=== PATIENT | female | born 1965 | race Caucasian/White ===

== ENCOUNTER 2017-02-23 17:13 | Emergency (ER) | payer OTHER ==
[~2017-02-23] VITALS: Ht 152.4 cm; Wt 93.0 kg
[~2017-02-23 17:13] MED LIST: COL250 PO; METFORMIN HCL500 MG PO; NAPROSYN375 MG PO; OMEPRAZOLE MAGN20 M1 PO; RANITIDINE HCL150 M1 PO
[2017-02-23 19:08] LABS: CALCIUM 8.8 mg/dL (8.5-10.1); CARBON DIOXIDE 29.5 mmol/L (21-32); CHLORIDE SERUM 103 mmol/L (98-107); CREATININE SERUM 0.9 mg/dL (0.6-1.0); GFR1 > 60 mL/min; GLUCOSE SERUM 301 mg/dL (74-106); POTASSIUM SERUM 3.8 mmol/L (3.5-5.1); SODIUM SERUM 140 mmol/L (136-145)
[2017-02-23 19:13] LABS: ALBUMIN 3.8 g/dL (3.4-5.0); ALKALINE PHOSPHATASE 93 U/L (46-116); ALT/SGPT 90 U/L (14-59); AST/SGOT 58 U/L (15-37); BILIRUBIN TOTAL 0.23 mg/dL (0.20-1.00)
[2017-02-23 19:20] LABS: PLATELET COUNT 248 x10^3mcL (130-400); RED CELL DISTRIBUTION WIDTH 12.6 % (11.5-14.5)
[2017-02-23 21:05] VITALS: BP 112/78
== END 2017-02-23 21:05 | disposition home or self-care (01) ==
LOC: ED 17:13
PROVIDERS: Emergency Medicine
DX: R07.89 Other chest pain (principal); E11.9 Type 2 diabetes mellitus without complications; R00.2 Palpitations
CPT/HCPCS: 83880; 85378; J1885

== ENCOUNTER 2017-09-07 08:35 | Inpatient (IN) | payer OTHER ==
[~2017-09-07] VITALS: Ht 162.6 cm; Wt 91.0 kg
[2017-09-07 10:19] LABS: BASOPHIL % 0.6 % (0-2); PLATELET COUNT 239 x10^3mcL (130-400); RED CELL DISTRIBUTION WIDTH 12.2 % (11.5-14.5)
[2017-09-07 10:22] LABS: CALCIUM 8.8 mg/dL (8.5-10.1); CARBON DIOXIDE 33.2 mmol/L (21-32); CHLORIDE SERUM 102 mmol/L (98-107); CREATININE SERUM 0.7 mg/dL (0.6-1.0); GFR1 > 60 mL/min; GLUCOSE SERUM 303 mg/dL (74-106); POTASSIUM SERUM 3.9 mmol/L (3.5-5.1); SODIUM SERUM 138 mmol/L (136-145)
[2017-09-07 10:26] LABS: ALBUMIN 3.7 g/dL (3.4-5.0); ALKALINE PHOSPHATASE 87 U/L (46-116); ALT/SGPT 65 U/L (14-59); AST/SGOT 29 U/L (15-37); BILIRUBIN TOTAL 0.3 mg/dL (0.20-1.00); LIPASE 188 IU/L (73-393); TOTAL PROTEIN, SERUM 7.9 g/dL (6.4-8.2)
[2017-09-07 11:34] LABS: AMPHETAMINE QUAL UR NONE DETECTED (NEG <=1000)
[2017-09-07 13:51] LABS: microscopic required? NO
[2017-09-07 13:53] VITALS: BP 137/81
[2017-09-07 13:54] LABS: UA SPECIFIC GRAVITY <=1.005 (1.005-1.035)
[2017-09-07 13:55] LABS: urine erythrocyte NEGATIVE (NEGATIVE)
[2017-09-07 14:18] LABS: CHOLESTEROL/HDL RATIO 3.4; MAGNESIUM 2.1 mg/dL (1.8-2.4); PHOSPHOROUS 3.6 mg/dL (2.5-4.9)
[2017-09-07 14:26] LABS: FREE T4 1.13 ng/dL (0.76-1.46); FREE THYROXINE INDEX 3.3 ug/dL (1.4-4.5); T4(THYROXINE) 10.8 ug/dL (4.7-13.3)
[2017-09-07 14:27] LABS: T3 TOTAL 1.04 ng/mL
[2017-09-07 16:34] VITALS: BP 131/75
[2017-09-07 20:53] VITALS: BP 122/67
[2017-09-08 05:52] VITALS: BP 113/66
[2017-09-08 06:10] LABS: BASOPHIL % 0.4 % (0-2); PLATELET COUNT 210 x10^3mcL (130-400); RED CELL DISTRIBUTION WIDTH 12.6 % (11.5-14.5)
[2017-09-08 06:29] LABS: CALCIUM 8.5 mg/dL (8.5-10.1); CARBON DIOXIDE 27.6 mmol/L (21-32); CHLORIDE SERUM 106 mmol/L (98-107); CREATININE SERUM 0.6 mg/dL (0.6-1.0); GFR1 > 60 mL/min; GLUCOSE SERUM 159 mg/dL (74-106); POTASSIUM SERUM 4.1 mmol/L (3.5-5.1); SODIUM SERUM 140 mmol/L (136-145)
[2017-09-08 08:58] VITALS: BP 110/65
[2017-09-08 12:43] VITALS: BP 102/68
[2017-09-08 14:51] VITALS: Ht 162.6 cm; Wt 91.0 kg
[2017-09-08] MEDS ORDERED: CYCLOBENZAPRINE5 MG PO (16:20)
[2017-09-08] MEDS ORDERED: APAP/HYDROCODON1 T13 PO (16:30)
[2017-09-08] MEDS ORDERED: GLUCOSE TEST S1 EACH MC (16:33)
[2017-09-08] MEDS ORDERED: ACCU-CHEK1 EAC2 MC (16:34)
[2017-09-08] MEDS ORDERED: LANCET DEVICE1 EACH MC (16:34)
[2017-09-08] MEDS ORDERED: HIBICLENS118 ML TOP (16:35)
[2017-09-08] MEDS ORDERED: BACO TOP (16:36)
[2017-09-08] MEDS ORDERED: METFORMIN HCL1000 MG PO (16:36)
[2017-09-08 16:37] VITALS: BP 120/74
[2017-09-08] MEDS ORDERED: COL100 PO (16:37)
== END 2017-09-08 17:45 | disposition home or self-care (01) | DRG 203 ==
LOC: ED 08:35 → DU 13:00
PROVIDERS: Emergency Medicine; Family Medicine
DX: M94.0 Chondrocostal junction syndrome [Tietze] (principal); E11.51 Type 2 diabetes mellitus with diabetic peripheral angiopathy without gangrene; E11.65 Type 2 diabetes mellitus with hyperglycemia; K21.9 Gastro-esophageal reflux disease without esophagitis; E78.5 Hyperlipidemia, unspecified; R51 Headache; M54.2 Cervicalgia; Z68.34 Body mass index [BMI] 34.0-34.9, adult; Z22.322 Carrier or suspected carrier of Methicillin resistant Staphylococcus aureus
CPT/HCPCS: 82962; 83880; 84439; J1885; J7030; Q0092

== ENCOUNTER 2019-06-23 14:22 | Emergency (ER) | payer MEDICAID ==
[~2019-06-23] VITALS: Ht 157.5 cm; Wt 89.8 kg
[~2019-06-23 14:22] MED LIST changes: +ACCU-CHEK1 EAC2 MC; +APAP/HYDROCODON1 T13 PO; +BACO TOP; +COL100 PO; +CYCLOBENZAPRINE5 MG PO; +GLUCOSE TEST S1 EACH MC; +HIBICLENS118 ML TOP; +LANCET DEVICE1 EACH MC; +METFORMIN HCL1000 MG PO
[2019-06-23 14:25] VITALS: Ht 157.5 cm; Wt 89.8 kg
[2019-06-23 15:07] LABS: BASOPHIL % 0.6 % (0-2); PLATELET COUNT 229 x10^3mcL (130-400); RED CELL DISTRIBUTION WIDTH 12.5 % (11.5-14.5)
[2019-06-23 15:12] LABS: CALCIUM 8.9 mg/dL (8.5-10.1); CHLORIDE SERUM 101 mmol/L (98-107); CREATININE SERUM 0.7 mg/dL (0.6-1.0); GFR1 > 60 mL/min; GLUCOSE SERUM 269 mg/dL (74-106); POTASSIUM SERUM 3.6 mmol/L (3.5-5.1); SODIUM SERUM 139 mmol/L (136-145)
[2019-06-23 15:16] LABS: ALBUMIN 3.7 g/dL (3.4-5.0); ALKALINE PHOSPHATASE 108 U/L (46-116); ALT/SGPT 47 U/L (14-59); AST/SGOT 19 U/L (15-37); BILIRUBIN TOTAL 0.2 mg/dL (0.20-1.00); LIPASE 243 IU/L (73-393); TOTAL PROTEIN, SERUM 7.8 g/dL (6.4-8.2)
[2019-06-23 19:23] VITALS: BP 136/76
== END 2019-06-23 19:23 | disposition home or self-care (01) ==
LOC: ED 14:22
DX: R07.89 Other chest pain (principal); E11.9 Type 2 diabetes mellitus without complications
CPT/HCPCS: 36415; J1885